=== PATIENT | female | born 1955 | race Two or more races ===

== ENCOUNTER 2019-03-09 11:52 | Emergency (ER) | payer MEDICAID ==
[~2019-03-09] VITALS: Ht 142.2 cm; Wt 62.6 kg
[2019-03-09 12:38] VITALS: BP 113/88
== END 2019-03-09 13:06 | disposition home or self-care (01) ==
LOC: ER 11:52
DX: S61.412A Laceration without foreign body of left hand, initial encounter (principal); F10.129 Alcohol abuse with intoxication, unspecified; F17.210 Nicotine dependence, cigarettes, uncomplicated; Z90.710 Acquired absence of both cervix and uterus; W45.8XXA Other foreign body or object entering through skin, initial encounter; Y93.89 Activity, other specified; Y99.8 Other external cause status; Y92.89 Other specified places as the place of occurrence of the external cause
CPT/HCPCS: 12002